=== PATIENT | male | born 1940 | race Caucasian/White ===

== ENCOUNTER 2018-08-10 12:11 | Observation (INO) ==
[2018-08-10] MEDS ORDERED: Sod Chloride 0.9% Inj 1,000 ML IV.CONT SCH (13:00)
--- NOTE | 2018-08-10 13:08 | ED ---
HPI General Chief Complaint: Syncope Stated Complaint: Poss syncope Time Seen by Provider: 08/10/18 12:14 Source: patient Mode of arrival: EMS Limitations: no limitations History of Present Illness HPI narrative: The patient is a 77-year-old male who presents to the emergency department via EMS after a syncopal episode. The patient is currently visiting from [place], has a condo in [place], [place]. The patient was at the [email or web address] [place] earlier today when he suddenly became lightheaded , dizzy, and diaphoretic. The patient felt like he was going to pass out, family member they placed the patient in a sitting position and stated he subsequently passed out. Family was able to catch the patient prior to him falling to the floor. The patient was noted to be significantly diaphoretic according to EMS. The patient denies any history of syncope. The patient denies any current chest pain, shortness of breath, but does note mild nausea. He also complains of lightheadedness and dizziness which is worse with standing upright, but still present while lying supine. 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 MD complaint: Reports loss of consciousness and collapsed Onset (ago): minute(s) -: second(s) Prodromal symptoms: Reports lightheaded, diaphoresis and nausea/vomiting Witnessed: yes - by other Context: Reports standing up Injuries sustained associated with event: Reports none Current symptoms: Reports lightheaded, nausea and weakness Treatments prior to arrival: Reports none Related Data Home Medications Medication Instructions Recorded Confirmed escitalopram oxalate [Lexapro] 5 mg PO DAILY 08/10/18 08/10/18 Allergies Allergy/AdvReac Type Severity Reaction Status Date / Time Penicillins Allergy Anxiety Verified 08/10/18 12:19 Sulfa (Sulfonamide Allergy Blister Verified 08/10/18 12:19 Antibiotics) tetracycline Allergy Confusion Verified 08/10/18 13:16 [From Achromycin] Review of Systems ROS: all other systems reviewed are negative [facility] Medical History Medical History Depression (Acute) Surgical History Surgical History History of back surgery (Acute) Social History Social History Substance History: No History of Abuse Second Hand Smoke Exposure: No Smoking Status: Never smoker How Often Do You Have a Drink Containing Alcohol: Monthly or less Recent Travel in [facility] within the Last 8 Weeks: No Recent Out of Country Travel within the Last 8 Weeks: No Immunization History Tetanus Immunization: <5 Years Exam Narrative Exam Narrative: GENERAL: Awake, alert, pleasant 77-year-old male who appears his stated age and is in no acute respiratory distress. SKIN: Focused skin assessment warm/dry. HEAD: Atraumatic. Normocephalic. EYES: Pupils equal and round. No scleral icterus. No injection or drainage. ENT: No nasal bleeding or discharge. Slightly dry mucous membranes. NECK: Trachea midline. No JVD. CARDIOVASCULAR: Regular rate and rhythm. No murmur appreciated. Heart rate in the 60s. RESPIRATORY: No accessory muscle use. Clear to auscultation. Breath sounds equal bilaterally. GASTROINTESTINAL: Abdomen soft, non-tender, nondistended. MUSCULOSKELETAL: No obvious deformities. No clubbing. No cyanosis. No edema. NEUROLOGICAL: Awake and alert. No obvious cranial nerve deficits. Motor grossly within normal limits. Normal speech. Nonfocal. Oriented x4. PSYCHIATRIC: Appropriate mood and affect; insight and judgment normal. Course Initial Documented Vital Signs Temperature 97.8 F 08/10/18 12:24 Pulse Rate 69 08/10/18 12:24 Respiratory Rate 14 08/10/18 12:24 Blood Pressure 146/64 H 08/10/18 12:24 Pulse Oximetry 98 08/10/18 12:24 Last Documented Vital Signs Temperature 97.8 F 08/10/18 12:24 Pulse Rate 63 08/10/18 15:08 Respiratory Rate 14 08/10/18 15:08 Blood Pressure 163/72 H 08/10/18 15:08 Pulse Oximetry 97 08/10/18 15:08 Medical Decision Making [facility] Narrative Medical decision making narrative: IV was established, labs are drawn and sent, and the patient was placed on cardiac telemetry monitoring and continuous pulse oximetry monitoring. EKG was ordered and interpreted. Orthostatic vital signs were obtained. CT the brain was obtained to rule out CVA/subdural hemorrhage. CT the brain is negative. Laboratory evaluation is unremarkable. The patient appeared to be in a sinus rhythm, there is no evidence of atrial or ventricular arrhythmias. However, the patient did feel like he was having palpitations at one time, there is no evidence of ectopy at that time on telemetry monitoring. The patient has no previous history of syncope, had a syncopal episode earlier today. Therefore, the patient will be 23-hour observation for echocardiogram and cardiac telemetry monitoring. The patient is comfortable with this plan of care and disposition. Medical Screen Exam Complete: Yes Emergency Medical Condition: Yes Differential Diagnosis Differential Diagnosis: Differential diagnosis includes orthostatic hypotension , vasovagal syncope, arrhythmia, neurogenic syncope, aortic stenosis, CVA, intracranial hemorrhage, symptomatic anemia, hyponatremia, dehydration, acute kidney injury. Lab Data Lab results reviewed: Yes I reviewed the patient's lab results. Result diagrams: 08/10/18 12:58 08/10/18 12:58 Lab Results 08/10/18 08/10/18 Range/Units 12:58 12:58 WBC 6.9 (4.0-11.0) th/mm3 RBC 4.69 (4.50-5.90) mil/mm3 Hgb 13.6 (13.0-17.0) gm/dL Hct 41.2 (39.0-51.0) % MCV 88.0 (80.0-100.0) fL MCH 28.9 (27.0-34.0) pg MCHC 32.9 (32.0-36.0) % RDW 14.6 (11.6-17.2) % Plt Count 189 (150-450) th/mm3 MPV 7.5 (7.0-11.0) fL Neut % (Auto) 76.4 H (16.0-70.0) % Lymph % (Auto) 10.9 (9.0-44.0) % [place] % (Auto) 8.8 H (0.0-8.0) % Eos % (Auto) 3.3 (0.0-4.0) % Baso % (Auto) 0.6 (0.0-2.0) % Neut # (Auto) 5.3 (1.8-7.7) th/mm3 Lymph # (Auto) 0.8 L (1.0-4.8) th/mm3 [place] # (Auto) 0.6 (0.0-0.9) th/mm3 Eos # (Auto) 0.2 (0.0-0.4) th/mm3 Baso # (Auto) 0.0 (0.0-0.2) th/mm3 WBC Differential . Differential Comment Auto diff final Sodium 144 (136-145) meq/L Potassium 4.1 (3.5-5.1) meq/L Chloride 107 (98-107) meq/L Carbon Dioxide 31.1 (21.0-32.0) meq/L Anion Gap 6 (5-15) meq/L BUN 18 (7-18) mg/dL Creatinine 1.43 H (0.60-1.30) mg/dL Estimated GFR 48 L (>89) mL/min Random Glucose 115 H (74-106) mg/dL Calcium 8.5 (8.5-10.1) mg/dL Magnesium 2.3 (1.5-2.5) mg/dL Total Bilirubin 0.6 (0.2-1.0) mg/dL AST 19 (15-37) U/L ALT 25 (12-78) U/L Alkaline Phosphatase 87 (45-117) U/L Troponin I Less than 0.02 L (0.02-0.05) ng/mL Total Protein 6.9 (6.4-8.2) g/dL Albumin 3.2 L (3.4-5.0) g/dL Imaging Data Radiologist's impression: Head CT 08/10/18 12:50 CONCLUSION: 1. Negative CT Head non contrast. 2. No evidence of acute infarct, hemorrhage, mass or edema. . ECG Data EKG Prior to Arrival: No Attestation: I personally reviewed and interpreted this ECG as follows: Interpretation: EKG reveals normal sinus rhythm with a rate of 68. No ischemic changes or ectopy noted. No evidence of WPW or Brugada syndrome. Discharge Plan Discharge Disposition Patient Disposition: 30 Still Patient Discharge Condition Condition: Stable Discharge Details Diagnosis: Syncope Physicians Team ED Provider: Parker Murray Primary Care Provider: UNKNOWN, Rxs /Orders / Referrals /Forms Prescriptions: No Action escitalopram oxalate [Lexapro] 5 mg Tablet 5 mg PO DAILY RF: 0 Discharge Interventions Interventions: Vital Signs Last Done: 08/10/18 15:08 Status ED Status: With Doctor
[2018-08-10 13:22] LABS: Baso % (Auto) 0.6 % (0.0-2.0); Eos # (Auto) 0.2 th/mm3 (0.0-0.4); Eos % (Auto) 3.3 % (0.0-4.0); Hematocrit 41.2 % (39.0-51.0); Hemoglobin 13.6 gm/dL (13.0-17.0); Lymph # (Auto) 0.8 th/mm3 (1.0-4.8); Lymph % (Auto) 10.9 % (9.0-44.0); Mean Corpuscular HGB Conc 32.9 % (32.0-36.0); Mean Corpuscular Hemoglobin 28.9 pg (27.0-34.0); Mean Platelet Volume 7.5 fL (7.0-11.0); Mono # (Auto) 0.6 th/mm3 (0.0-0.9); Mono % (Auto) 8.8 % (0.0-8.0); Neut # (Auto) 5.3 th/mm3 (1.8-7.7); Neut % (Auto) 76.4 % (16.0-70.0); Platelet Count 189 th/mm3 (150-450); Red Blood Count 4.69 mil/mm3 (4.50-5.90); Red Cell Distribution Width 14.6 % (11.6-17.2); White Blood Count 6.9 th/mm3 (4.0-11.0)
[2018-08-10 13:52] LABS: Alanine Aminotransferase 25 U/L (12-78); Albumin 3.2 g/dL (3.4-5.0); Anion Gap 6 meq/L (5-15); Aspartate Aminotransferase 19 U/L (15-37); Blood Urea Nitrogen 18 mg/dL (7-18); Calcium 8.5 mg/dL (8.5-10.1); Carbon Dioxide 31.1 meq/L (21.0-32.0); Chloride 107 meq/L (98-107); Glomerular Filtration Rate 48 mL/min (>89); Glucose,Random 115 mg/dL (74-106); Magnesium 2.3 mg/dL (1.5-2.5); Potassium 4.1 meq/L (3.5-5.1); Sodium 144 meq/L (136-145)
[2018-08-10 13:56] LABS: Alkaline Phosphatase 87 U/L (45-117); Total Protein 6.9 g/dL (6.4-8.2)
[2018-08-10] MEDS ORDERED: Acetaminophen 325 MG Tablet PO ONE (14:01)
--- NOTE | 2018-08-10 15:07 | CT ---
EXAM DATE: 08/10/2018 2:46 PM EST AGE/SEX: 77 years / Male INDICATIONS: Dizziness. CLINICAL DATA: This is the patient's initial encounter. Patient reports that signs and symptoms have been present for 1 day and indicates a pain score of 0/10. MEDICAL/SURGICAL HISTORY: None. . back surgery RADIATION DOSE: 41.05 CTDI (mGy) COMPARISON: No prior exams available for comparison. TECHNIQUE: CT of the head without contrast. Using automated exposure control and adjustment of the mA and/or kV according to patient size, radiation dose was kept as low as reasonably achievable to ob tain optimal diagnostic quality images. DICOM format image data is available electronically for revi ew and comparison. FINDINGS: Cerebrum: The ventricles are normal for age. No evidence of midline shift, mass lesion, hemorrhage or acute infarction. No extraaxial fluid collections are seen. Posterior Fossa: The cerebellum and brainstem are intact. The 4th ventricle is midline. The cerebe llopontine angle is unremarkable. Extracranial: The visualized portion of the orbits is intact. Skull: The calvaria is intact. No evidence of skull fracture. CONCLUSION: 1. Negative CT Head non contrast. 2. No evidence of acute infarct, hemorrhage, mass or edema. . Electronically signed by: Piter Celaya MD 08/10/2018 3:06 PM EST
[2018-08-10 15:41] LABS: Bilirubin,Urine Negative (Negative); Clarity,Urine Hazy (Clear); Color,Urine Yellow (Yellw/Straw); Glucose,Urine (UA) Negative (Negative); Leukocyte Esterase,Urine Negative (Negative); Mucus,Urine Few /lpf (Occasional); Nitrite,Urine Negative (Negative); Specific Gravity,Urine 1.014 (1.002-1.035); Squamous Epithelial Cell,Urine <1 /hpf (0-5)
[2018-08-10] MEDS ORDERED: Morphine Inj 4 MG/ML Vial IV.PUSH PRN ×3 (15:54)
[2018-08-10] MEDS ORDERED: Naloxone Inj 0.4 MG/ML Vial IV.PUSH PRN (15:54)
[2018-08-10] MEDS ORDERED: oxyCODONE/Acetaminophen 10/325 Tablet PO PRN (15:54)
[2018-08-10] MEDS ORDERED: Bisacodyl 10 MG Supp RECTAL PRN (15:54)
[2018-08-10] MEDS ORDERED: Morphine Sulfate Inj 2 MG/ML Vial IV.PUSH PRN (15:54)
[2018-08-10] MEDS ORDERED: Acetaminophen 325 MG Tablet PO PRN ×2 (15:54)
--- NOTE | 2018-08-10 16:17 | P.HP ---
History of Present Illness Primary Care Physician: UNKNOWN Chief Complaint: syncope History of Present Illness: 77-year-old male with history of depression presents after syncopal episode. Patient is visiting from [place] on vacation, travel via private vehicle yesterday. The patient states he woke up this morning, felt a little bit lightheaded when he got out of bed, but otherwise felt okay. He went to [employer], was not there very long, when he all of a sudden became very lightheaded with profuse diaphoresis. He states he was able to sit down with the assistance of his family, then suddenly syncopized. His son reports he lost consciousness for about 15-20 seconds. He did not fall or suffer any head injury. He was nauseous after the episode, but no vomiting. Son at bedside reports EVAC noted his systolic blood pressure to be in the 70s. He denies ever having any chest pain, palpitations, or shortness of breath. Patient states 2- 3 weeks ago he was getting up from bed when he all of a sudden felt lightheaded and fell. He has difficulty recalling if he passed out or not, but he did suffer abrasions to his bilateral upper extremities and was very diaphoretic at that time. He has also been having some left shoulder pain and left arm paresthesias since this fall. Currently the patient is seen in the ED, he reports overall feeling better, however still having some lightheadedness, worse upon standing. He has no other medical complaints at this time. He reports a family history of stroke. He has been on baby aspirin daily for years but stopped taking this about a month ago due to bleeding from superficial abrasions on extremities. 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 - Diagnosis (1) Syncope Review of Systems All other systems reviewed negative except as stated in HPI PMFSH - History History Provided By: Patient - Medical History Medical History: Medical History (Last Updated 08/10/18 @ 16:50 by Gladys Eugene) Depression Spinal stenosis - Surgical History Surgical History: Surgical History (Last Updated 08/10/18 @ 16:51 by Glayds Eugene) History of back surgery History of cataract surgery - Family History Family History: Family History (Last Updated 08/10/18 @ 16:51 by Gladys Eugene) Other Stroke - Social History I have reviewed the patient's Social History: Yes - Tobacco History Second Hand Smoke Exposure: No Smoking Status: Former smoker (quit 50-60 years ago) - Alcohol History How Often Do You Have a Drink Containing Alcohol: Monthly or less - Substance Use History Substance History: No History of Abuse - Travel History Recent Travel in the [place] Within the Last 8 Weeks: No Recent Travel Out of the Country Within the Last 8 Weeks: No - Immunization History Tetanus Immunization: <5 Years Medications and Allergies Active Medications: Active Medications Acetaminophen (Tylenol) 650 mg PO Q6HR PRN PRN Reason: PAIN SCALE 1 TO 2 Acetaminophen (Tylenol) 650 mg PO Q4H PRN PRN Reason: Temp > 100.4 Al Hydroxide/Mg Hydroxide (Milk Of Magnesia Liq) 30 ml PO Q12H PRN PRN Reason: Mild Constipation Bisacodyl (Dulcolax Supp) 10 mg RECTAL DAILY PRN PRN Reason: SEVERE CONSITIPATION Escitalopram Oxalate (Lexapro) 5 mg PO DAILY FATMATA Sodium Chloride (Ns Inj) 1,000 mls @ 125 mls/hr IV.CONT .Q8H FATMATA Stop: 08/10/18 20:59 Last Admin: 08/10/18 13:14 Dose: 125 mls/hr Sodium Chloride (Ns Inj) 1,000 mls @ 100 mls/hr IV.CONT .Q10H FATMATA Cefepime HCl 2,000 mg/ Sodium (Chloride) 100 mls @ 200 mls/hr IV.SIG ONCE ONE Stop: 08/10/18 16:28 Lactulose (Lactulose Liq) 30 ml PO DAILY PRN PRN Reason: SEVERE CONSITIPATION Morphine Sulfate (Morphine Inj) 2 mg IV.PUSH Q3H PRN PRN Reason: PAIN 3-5; IF UABLE TO TAKE PO Morphine Sulfate (Morphine Inj) 4 mg IV.PUSH Q3H PRN PRN Reason: PAIN 6-10;IF UNABLE TO TAKE PO Morphine Sulfate (Morphine Inj) 4 mg IV.PUSH Q3H PRN PRN Reason: BREAKTHROUGH PAIN Morphine Sulfate (Morphine Inj) 4 mg IV.PUSH Q1H PRN PRN Reason: Pain Scale 7-10 (Intractable) Naloxone HCl (Narcan Inj) 0.4 mg IV.PUSH UNSCH PRN PRN Reason: SEE LABEL COMMENTS Ondansetron HCl (Zofran Inj) 4 mg IV.PUSH Q6H PRN PRN Reason: NAUSEA OR VOMITING Oxycodone/Acetaminophen (Percocet 10/325 Mg) 1 tab PO Q6H PRN PRN Reason: PAIN SCALE 6 TO 10 Oxycodone/Acetaminophen (Percocet 5/325 Mg) 1 tab PO Q6H PRN PRN Reason: PAIN SCALE 3 TO 5 Senna/Docusate Sodium (Valerie-Colace) 1 tab PO BID FATMATA Sennosides (Senokot) 17.2 mg PO Q12H PRN PRN Reason: Moderate Constipation Allergies Allergy/AdvReac Type Severity Reaction Status Date / Time Penicillins Allergy Anxiety Verified 08/10/18 12:19 Sulfa (Sulfonamide Allergy Blister Verified 08/10/18 12:19 Antibiotics) tetracycline Allergy Confusion Verified 08/10/18 13:16 [From Achromycin] Home Medications Medication Instructions Recorded Confirmed Type escitalopram oxalate [Lexapro] 5 mg PO DAILY 08/10/18 08/10/18 History Exam Vital signs: Vital Signs 08/10/18 12:24 08/10/18 13:14 08/10/18 15:08 Temperature 97.8 F Pulse Rate 69 63 Respiratory Rate 14 14 Blood Pressure 146/64 H 163/72 H Pulse Oximetry 98 97 97 Intake & Output 08/09/18 08/10/18 08/10/18 19:59 06:59 18:59 Weight 98.43 kg Narrative: GENERAL: Well-nourished, well-developed elderly male patient in [facility]. SKIN: Warm and dry. No rash. HEENT: Normocephalic. Atraumatic. Pupils equal and round. Mucous membranes pink and moist. NECK: Supple. Trachea midline. CARDIOVASCULAR: Regular rate and rhythm. No murmur appreciated. RESPIRATORY: No accessory muscle use. Clear to auscultation. Breath sounds equal bilaterally. GASTROINTESTINAL: Abdomen soft, non-tender, nondistended. Normoactive bowel sounds x4. MUSCULOSKELETAL: No obvious deformities. Extremities without clubbing, cyanosis , or edema. NEUROLOGICAL: Awake and alert. No obvious cranial nerve deficits. Motor grossly within normal limits. 5/5 bilateral upper and lower extremity strength. Normal speech. No facial droop, lid lag, or tongue deviation. No pronator drift. Bilateral facial sensation equal and intact. PSYCHIATRIC: Appropriate mood and affect; insight and judgment normal. Results - Labs CBC & Chem 7: 08/10/18 12:58 08/10/18 12:58 Labs: Laboratory Results - last 24 hr 08/10/18 08/10/18 08/10/18 12:58 12:58 14:54 WBC 6.9 RBC 4.69 Hgb 13.6 Hct 41.2 MCV 88.0 MCH 28.9 MCHC 32.9 RDW 14.6 Plt Count 189 MPV 7.5 Neut % (Auto) 76.4 H Lymph % (Auto) 10.9 [place] % (Auto) 8.8 H Eos % (Auto) 3.3 Baso % (Auto) 0.6 Neut # (Auto) 5.3 Lymph # (Auto) 0.8 L [place] # (Auto) 0.6 Eos # (Auto) 0.2 Baso # (Auto) 0.0 WBC Differential . Differential Comment Auto diff final Sodium 144 Potassium 4.1 Chloride 107 Carbon Dioxide 31.1 Anion Gap 6 BUN 18 Creatinine 1.43 H Estimated GFR 48 L Random Glucose 115 H Calcium 8.5 Magnesium 2.3 Total Bilirubin 0.6 AST 19 ALT 25 Alkaline Phosphatase 87 Troponin I Less than 0.02 L Total Protein 6.9 Albumin 3.2 L Urine Color Yellow Urine Clarity Hazy H Urine pH 5.0 Ur Specific [place] 1.014 Urine Protein Negative Urine Glucose (UA) Negative Urine Ketones Negative Urine Occult Blood Negative Urine Nitrate Negative Urine Bilirubin Negative Urine Urobilinogen Less than 2 Ur Leukocyte Esterase Negative Urine WBC 2 Ur Squamous Epith Cells <1 Urine Mucus Few H Micro UA Comment Culture not ind Ur Microscopic Review Not Reportable Urine Culture Comments Culture not ind - Imaging Impressions Head CT 08/10/18 12:50 CONCLUSION: 1. Negative CT Head non contrast. 2. No evidence of acute infarct, hemorrhage, mass or edema. . Caprini VTE Risk Assessment Caprini VTE Risk Assessment: Moderate/High Risk (score >= 2) Caprini Risk Assessment Model: Point Value = 1 Point Value = 2 Point Value = 3 Point Value = 5 Age 41-60 Minor surgery BMI > 25 kg/m2 Swollen legs Varicose veins or History of unexplained or recurrent spontaneous Oral contraceptives or hormone replacement Sepsis (< 1 month) Serious lung disease, including pneumonia (< 1 month) Abnormal pulmonary function Acute myocardial infarction Congestive heart failure (< 1 month) History of inflammatory bowel disease Medical patient at bed rest Age 61-74 Arthroscopic surgery Major open surgery (> 45 min) Laparoscopic surgery (> 45 min) Malignancy Confined to bed (> 72 hours) Immobilizing plaster cast Central venous access Age >= 75 History of VTE Family history of VTE Factor V Leiden Prothrombin [id number] Lupus anticoagulant Anticardiolipin antibodies Elevated serum homocysteine Heparin-induced thrombocytopenia Other congenital or acquired thrombophilia Stroke (< 1 month) Elective arthroplasty Hip, pelvis, or leg fracture Acute spinal cord injury (< 1 month) Prophylaxis Regimen: Total Risk Factor Score Risk Level Prophylaxis Regimen 0-1 Low Early ambulation 2 Moderate Order ONE of the following: *Sequential Compression Device (SCD) *Heparin 5000 units SQ BID 3-4 Higher Order ONE of the following medications: *Heparin 5000 units SQ TID *Enoxaparin/Lovenox 40 mg SQ daily (WT < 150 kg, CrCl > 30 mL/min) *Enoxaparin/Lovenox 30 mg SQ daily (WT < 150 kg, CrCl > 10-29 mL/min) *Enoxaparin/Lovenox 30 mg SQ BID (WT < 150 kg, CrCl > 30 mL/min) AND/OR *Sequential Compression Device (SCD) 5 or more Highest Order ONE of the following medications: *Heparin 5000 units SQ TID (Preferred with Epidurals) *Enoxaparin/Lovenox 40 mg SQ daily (WT < 150 kg, CrCl > 30 mL/min) *Enoxaparin/Lovenox 30 mg SQ daily (WT < 150 kg, CrCl > 10-29 mL/min) *Enoxaparin/Lovenox 30 mg SQ BID (WT < 150 kg, CrCl > 30 mL/min) AND *Sequential Compression Device (SCD) Assessment and Plan - Assessment (1) Syncope Code(s): R55 - Syncope and collapse Status: Acute - Plan 77-year-old male with history of depression presents after syncopal episode while at the [employer]. Patient is visiting from [place] on vacation, travel via private vehicle yesterday. Syncope: suspect secondary to dehydration, rule out TIA/CVA, arrhythmia, cardiomyopathy, etc. 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 Denies any hx of CKD. -give IVF hydration -avoid nephrotoxins -repeat BMP in am Depression: chronic -continue patient's home med DVT Prophylaxis: teds/SCDs (1) Syncope Qualifiers: Syncope type: unspecified Qualified Code(s): R55 - Syncope and collapse
[2018-08-10] MEDS: Sod Chloride 0.9% Inj 1,000 ML IV.CONT SCH (17:51)
--- NOTE | 2018-08-10 18:38 | US ---
EXAM DATE: 08/10/2018 6:33 PM EST AGE/SEX: 77 years / Male INDICATIONS: Syncope. CLINICAL DATA: This is the patient's initial encounter. Patient reports that signs and symptoms have been present for 1 day and indicates a pain score of 0/10. MEDICAL/SURGICAL HISTORY: . Spinal stenosis. . Back surgery. COMPARISON: No prior exams available for comparison. VELOCITY PARAMETERS: ICA/CCA Ratio: Right 0.8 , Left 0.8 ICA: Right 95 cm/sec, Left 72 cm/sec CCA: Right 115 cm/sec, Left 85 cm/sec ECA: Right 63 cm/sec, Left 71 cm/sec Vertebral: Right 40 cm/sec antegrade, Left 53 cm/sec antegrade FINDINGS: Right Carotid: No significant plaque is visualized.The waveforms are within normal limits. Left Carotid: No significant plaque is visualized. The waveforms are within normal limits. Other: None. CONCLUSION: 1. Right Internal Carotid Artery: No significant plaque or narrowing. 2. Left Internal Carotid Artery: No significant plaque or narrowing. Electronically signed by: Deepak Currie MD 08/10/2018 6:37 PM EST
[2018-08-10] MEDS: Senna/Docusate Sodium 8.6/50 MG Tablet PO SCH (20:25)
[2018-08-10 22:02] LABS: Creatine Kinase 128 U/L (39-308)
[2018-08-11 01:20] LABS: Creatine Kinase 80 U/L (39-308)
[2018-08-11] MEDS: Sod Chloride 0.9% Inj 1,000 ML IV.CONT SCH (02:07)
--- NOTE | 2018-08-11 02:27 | P.PNADD ---
Addendum to Inpatient Note Reason for Addendum: Additional Documentation Additional information: Mr. Garcia spoke with his bedside RN and requested a DNR CODE STATUS. I came to the patient's bedside and discussed this with him. He is awake alert and oriented and situationally aware. He states that he saw his father, who had a documented DNR status, subjected to a resuscitation despite his wishes. He says he saw him suffer from multiple rib fractures following prolonged resuscitation efforts. He indicates that he has long-standing chronic pain from spinal stenosis along with "bad lungs". He indicates that he has lived "a very good life" and wishes no resuscitative efforts be attempted in the event that his heart stops or if he stops breathing. He is aware this will result in his . He tells me that his is aware of his desire for DNR status, but does not agree with his decision. He requests a [place] DNR form. I have placed a consult to palliative care to assist with this. In my opinion, a formal consultation is not necessarily needed in this case. The palliative care team and the daytime attending can determine how best to proceed during normal daytime hours. In the interim, I have honored his request and placed a DO NOT RESUSCITATE order in the electronic medical record. .
[2018-08-11 05:42] LABS: INR 1.1 Ratio
[2018-08-11 05:43] LABS: Baso % (Auto) 0.7 % (0.0-2.0); Eos # (Auto) 0.2 th/mm3 (0.0-0.4); Eos % (Auto) 3.4 % (0.0-4.0); Hematocrit 41.6 % (39.0-51.0); Lymph # (Auto) 0.6 th/mm3 (1.0-4.8); Lymph % (Auto) 10.3 % (9.0-44.0); Mean Corpuscular HGB Conc 33.6 % (32.0-36.0); Mean Corpuscular Volume 86.1 fL (80.0-100.0); Mean Platelet Volume 7.4 fL (7.0-11.0); Mono # (Auto) 0.6 th/mm3 (0.0-0.9); Mono % (Auto) 9.2 % (0.0-8.0); Neut # (Auto) 4.8 th/mm3 (1.8-7.7); Neut % (Auto) 76.4 % (16.0-70.0); Platelet Count 173 th/mm3 (150-450); Red Blood Count 4.83 mil/mm3 (4.50-5.90); Red Cell Distribution Width 14.2 % (11.6-17.2); White Blood Count 6.3 th/mm3 (4.0-11.0)
[2018-08-11 06:03] LABS: Albumin 3.1 g/dL (3.4-5.0); Anion Gap 6 meq/L (5-15); Aspartate Aminotransferase 19 U/L (15-37); Blood Urea Nitrogen 14 mg/dL (7-18); Calcium 8.4 mg/dL (8.5-10.1); Carbon Dioxide 29.6 meq/L (21.0-32.0); Chloride 108 meq/L (98-107); Cholesterol 165 mg/dL (120-200); Glomerular Filtration Rate 62 mL/min (>89); Glucose,Random 91 mg/dL (74-106); Potassium 4.1 meq/L (3.5-5.1); Sodium 144 meq/L (136-145)
[2018-08-11 06:08] LABS: Alanine Aminotransferase 27 U/L (12-78); Alkaline Phosphatase 87 U/L (45-117); Chol/HDL Ratio 4.55 Ratio; HDL Cholesterol 36.2 mg/dL (40.0-60.0); LDL Cholesterol,Calculated 100 mg/dL (0-99); Total Protein 6.8 g/dL (6.4-8.2); Triglycerides 144 mg/dL (42-150)
[2018-08-11] MEDS: Senna/Docusate Sodium 8.6/50 MG Tablet PO SCH (08:33)
[2018-08-11] MEDS ORDERED: Escitalopram 10 MG Tablet PO SCH (09:00)
[2018-08-11 09:41] VITALS: BP 129/62; RESP 20; TEMP 97.8; O2SAT 97
--- NOTE | 2018-08-11 09:56 | MR ---
EXAM DATE: 08/11/2018 9:49 AM EST AGE/SEX: 77 years / Male INDICATIONS: CVA. CLINICAL DATA: This is the patient's initial encounter. Patient reports that signs and symptoms have been present for 2 days and indicates a pain score of 0/10. MEDICAL/SURGICAL HISTORY: None. Fusion, lumbar. COMPARISON: [facility] [place], CT HEAD W/O CONTRAST, 08/10/2018. . TECHNIQUE: Multiplanar, multisequence examination of the brain was performed without contrast. FINDINGS: Cerebrum: The ventricles are normal for age. No evidence of midline shift, mass lesion, hemorrhage or acute infarction. No extraaxial fluid collections are seen. The pituitary gland and suprasellar cistern are normal in configuration. White Matter: Scattered foci of bright T2 signal abnormalities are seen in the white matter. Posterior Fossa: The cerebellum and brainstem are intact. The 4th ventricle is midline. The cerebel lopontine angle is unremarkable. The cerebellar tonsils are normal in position. Diffusion Imaging: No focal areas of restricted diffusion are seen. No evidence of acute infarction . Extracranial: The visualized portions of the orbits and paranasal sinuses are unremarkable. CONCLUSION: 1. Chronic ischemic small vessel vasculopathy. 2. No acute infarction. Electronically signed by: Siva De La Rosa MD 08/11/2018 9:55 AM EST
[2018-08-11 11:05] VITALS: PULSE 92
--- NOTE | 2018-08-11 12:09 | P.PNPAL ---
Palliative care consulted to assist with facilitation of [facility] Community DNR Order as patient indicate last night with [employer] he wished to be a DNR and wanted to form completed to discharge with him. Spoke with CM to assist with facilitate of medical attending signing Community DNR. Community DNR completed with case management assistance. Copy in chart and copy faxed to HIM to be scanned into EMR. Palliative care remains available if needed for full consultation.
[2018-08-11] MEDS ORDERED: Lactobacillus Acidophilus/L. Spores Tablet PO SCH (13:00)
--- NOTE | 2018-08-11 14:28 | ECHRPT ---
Indication: syncope CONCLUSIONS The left ventricular systolic function is low normal with an estimated ejection fraction in the rang e of 50- 55%. Normal left ventricular size. Wall thickness is normal. No regional wall motion abnormalities are present. Aortic valve sclerosis is present. There is trace tricuspid valve regurgitation. The estimated pulmonary arterial pressure is 40.7 mmHg. BP: / HR: Rhythm: Sinus MEASUREMENTS (Male / Female) Normal Values Technical Quality:Fair 2D ECHO LV Diastolic Diameter PLAX 4.8 cm 4.2 - 5.9 / 3.9 - 5.3 cm LV Systolic Diameter PLAX 3.7 cm IVS Diastolic Thickness 1.1 cm 0.6 - 1.0 / 0.6 - 0.9 cm LVPW Diastolic Thickness 1.1 cm 0.6 - 1.0 / 0.6 - 0.9 cm LV Relative Wall Thickness 0.4 LVOT Diameter 2.1 cm LA Systolic Diameter LX 3.3 cm 3.0 - 4.0 / 2.7 - 3.8 cm LV Ejection Fraction MOD 4C 56.2 % LV Ejection Fraction 4C AL 57.8 % M-MODE Aortic Root Diameter MM 2.5 cm LA Systolic Diameter MM 3.2 cm LA Ao Ratio MM 1.3 AV Cusp Separation MM 1.9 cm DOPPLER AV Peak Velocity 133.0 cm/s AV Peak Gradient 7.1 mmHg LVOT Peak Velocity 94.8 cm/s LVOT Peak Gradient 3.6 mmHg AV Area Cont Eq pk 2.5 cm MV Area PHT 4.2 cm Mitral E Point Velocity 72.6 cm/s Mitral A Point Velocity 94.3 cm/s Mitral E to A Ratio 0.8 LV E' Lateral Velocity 9.1 cm/s Mitral E to LV E' Lateral Ratio 8.0 LV E' Septal Velocity 5.6 cm/s Mitral E to LV E' Septal Ratio 13.1 TR Peak Velocity 277.0 cm/s TR Peak Gradient 30.7 mmHg Right Atrial Pressure 10.0 mmHg Pulmonary Artery Systolic Pressu 40.7 mmHg Right Ventricular Systolic Press 40.7 mmHg PV Peak Velocity 70.6 cm/s PV Peak Gradient 2.0 mmHg FINDINGS LEFT VENTRICLE The left ventricular systolic function is low normal with an estimated ejection fraction in the rang e of 50- 55%. Normal left ventricular size. Wall thickness is normal. No regional wall motion abnormalities are present. RIGHT VENTRICLE Normal right ventricular size and systolic function. LEFT ATRIUM The left atrial size is normal. RIGHT ATRIUM The right atrial size is normal. ATRIAL SEPTUM Normal atrial septal thickness without atrial level shunting by limited color doppler interrogation. AORTA The aortic root and proximal ascending aorta are normal in size on limited imaging. MITRAL VALVE Structurally normal mitral valve. No mitral valve stenosis or regurgitation. AORTIC VALVE Trileaflet aortic valve. Aortic valve sclerosis is present. TRICUSPID VALVE Structurally normal tricuspid valve. There is trace tricuspid valve regurgitation. The estimated pulmonary arterial pressure is 40.7 mmHg. PULMONARY VALVE No pulmonary valve regurgitation or stenosis. VESSELS The inferior vena cava is normal in size. PERICARDIUM No pericardial effusion. Km Capellan MD, FACC, FSCAI (Electronically Signed) Final Date:11 August 2018 14:27
--- NOTE | 2018-08-11 15:15 | P.DS ---
Date of admission: 08/10/18 15:56 Primary care physician: UNKNOWN Brief History from admission: 77-year-old male with history of depression presents after syncopal episode. Patient is visiting from [place] on vacation, travel via private vehicle yesterday. The patient states he woke up this morning, felt a little bit lightheaded when he got out of bed, but otherwise felt okay. He went to [employer], was not there very long, when he all of a sudden became very lightheaded with profuse diaphoresis. He states he was able to sit down with the assistance of his family, then suddenly syncopized. His son reports he lost consciousness for about 15-20 seconds. He did not fall or suffer any head injury. He was nauseous after the episode, but no vomiting. Son at bedside reports EVAC noted his systolic blood pressure to be in the 70s. He denies ever having any chest pain, palpitations, or shortness of breath. Patient states 2- 3 weeks ago he was getting up from bed when he all of a sudden felt lightheaded and fell. He has difficulty recalling if he passed out or not, but he did suffer abrasions to his bilateral upper extremities and was very diaphoretic at that time. He has also been having some left shoulder pain and left arm paresthesias since this fall. Currently the patient is seen in the ED, he reports overall feeling better, however still having some lightheadedness, worse upon standing. He has no other medical complaints at this time. He reports a family history of stroke. He has been on baby aspirin daily for years but stopped taking this about a month ago due to bleeding from superficial abrasions on extremities. 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 DS: Medications - Discharge Medications Prescriptions: acidophilus-sporogenes [Acidophilus Ex Str (L. sporog)] 1 tab PO TID #60 tab cefuroxime axetil 500 mg PO Q12H #28 tab DS: Summary Hospital Course: Mr. Garcia is a 77-year-old male. He has a past history of recurrent profuse sweating episodes 2-3 times per 24-hour period. The patient came in secondary to a syncopal episode. This appears to be related to dehydration, orthostatic hypotension was present but is likely volume related. 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 He also reports numerous episodes of finding ticks on his body in the past. He is from [facility] which places him at risk for ehrlichiosis or Lyme's. Tetracyclines are an allergy in this patient so we discussed treatment with a cephalosporin. Syncopal workup was otherwise negative including echocardiogram, MRI, carotid ultrasound, and telemetry monitoring. Medically stable and cleared for discharge home today, he tolerated Rocephin as an inpatient, he will continue for 2 weeks on cefuroxime with a probiotic. - Time Spent with Patient Total time spent providing and/or coordinating discharge services: Less than 30 minutes - Quality: VTE Deep Vein Thrombosis/Pulmonary Embolism Present on Admission: No Exam Vital signs: Vital Signs 08/10/18 18:59 08/10/18 21:00 08/10/18 21:15 Temperature 97.4 F L Pulse Rate 68 64 69 Respiratory Rate 22 16 Blood Pressure 136/70 166/77 H Pulse Oximetry 97 96 08/10/18 23:55 08/11/18 00:00 08/11/18 03:58 Temperature 98.4 F 98.3 F Pulse Rate 52 L 77 76 Respiratory Rate 16 18 Blood Pressure 127/67 152/77 H Pulse Oximetry 96 96 08/11/18 04:00 08/11/18 08:00 08/11/18 09:00 Temperature 97.8 F Pulse Rate 74 66 92 H Respiratory Rate 20 Blood Pressure 129/62 Pulse Oximetry 97 Intake & Output 08/10/18 08/11/18 08/11/18 18:59 06:59 18:59 Intake Total 1000 / 1000 1300 / 1300 200 / 200 Balance 1000 / 1000 1300 / 1300 200 / 200 Weight 98.43 kg 98.43 kg Intake: IV 1000 / 1000 1000 / 1000 200 / 200 NS Inj 1,000 ML @ 100 mls/hr IV 1000 / 1000 1000 / 1000 200 / 200 .CONT .Q10H FATMATA Rx#:[id number] Oral 300 / 300 Other: # Voids 5 Weight On Admission 98.43 kg Results Procedures completed during hospitalization: None Labs on day of discharge: Labs from last 24 hours 08/11/18 08/11/18 08/11/18 05:05 05:05 05:05 WBC 6.3 RBC 4.83 Hgb 14.0 Hct 41.6 MCV 86.1 MCH 29.0 MCHC 33.6 RDW 14.2 Plt Count 173 MPV 7.4 Neut % (Auto) 76.4 H Lymph % (Auto) 10.3 [place] % (Auto) 9.2 H Eos % (Auto) 3.4 Baso % (Auto) 0.7 Neut # (Auto) 4.8 Lymph # (Auto) 0.6 L [place] # (Auto) 0.6 Eos # (Auto) 0.2 Baso # (Auto) 0.0 WBC Differential . Differential Comment Auto diff final PT 11.0 INR 1.1 Sodium 144 Potassium 4.1 Chloride 108 H Carbon Dioxide 29.6 Anion Gap 6 BUN 14 Creatinine 1.14 Estimated GFR 62 L Random Glucose 91 Hemoglobin A1c Calcium 8.4 L Total Bilirubin 0.6 AST 19 ALT 27 Alkaline Phosphatase 87 Total Creatine Kinase Troponin I Total Protein 6.8 Albumin 3.1 L Triglycerides 144 Cholesterol 165 LDL Cholesterol, Calc 100 H HDL Cholesterol 36.2 L Cholesterol/HDL Ratio 4.55 Urine Color Urine Clarity Urine pH Ur Specific [place] Urine Protein Urine Glucose (UA) Urine Ketones Urine Occult Blood Urine Nitrate Urine Bilirubin Urine Urobilinogen Ur Leukocyte Esterase Urine WBC Ur Squamous Epith Cells Urine Mucus Micro UA Comment Ur Microscopic Review Urine Culture Comments Serum Alcohol 08/11/18 08/10/18 08/10/18 00:41 20:52 16:16 WBC RBC Hgb Hct MCV MCH MCHC RDW Plt Count MPV Neut % (Auto) Lymph % (Auto) [place] % (Auto) Eos % (Auto) Baso % (Auto) Neut # (Auto) Lymph # (Auto) [place] # (Auto) Eos # (Auto) Baso # (Auto) WBC Differential Differential Comment PT INR Sodium Potassium Chloride Carbon Dioxide Anion Gap BUN Creatinine Estimated GFR Random Glucose Hemoglobin A1c Calcium Total Bilirubin AST ALT Alkaline Phosphatase Total Creatine Kinase 80 128 Troponin I Less than 0.02 L Less than 0.02 L Total Protein Albumin Triglycerides Cholesterol LDL Cholesterol, Calc HDL Cholesterol Cholesterol/HDL Ratio Urine Color Urine Clarity Urine pH Ur Specific [place] Urine Protein Urine Glucose (UA) Urine Ketones Urine Occult Blood Urine Nitrate Urine Bilirubin Urine Urobilinogen Ur Leukocyte Esterase Urine WBC Ur Squamous Epith Cells Urine Mucus Micro UA Comment Ur Microscopic Review Urine Culture Comments Serum Alcohol Less than 3 08/10/18 08/10/18 14:54 12:58 WBC RBC Hgb Hct MCV MCH MCHC RDW Plt Count MPV Neut % (Auto) Lymph % (Auto) [place] % (Auto) Eos % (Auto) Baso % (Auto) Neut # (Auto) Lymph # (Auto) [place] # (Auto) Eos # (Auto) Baso # (Auto) WBC Differential Differential Comment PT INR Sodium Potassium Chloride Carbon Dioxide Anion Gap BUN Creatinine Estimated GFR Random Glucose Hemoglobin A1c Pending Calcium Total Bilirubin AST ALT Alkaline Phosphatase Total Creatine Kinase Troponin I Total Protein Albumin Triglycerides Cholesterol LDL Cholesterol, Calc HDL Cholesterol Cholesterol/HDL Ratio Urine Color Yellow Urine Clarity Hazy H Urine pH 5.0 Ur Specific [place] 1.014 Urine Protein Negative Urine Glucose (UA) Negative Urine Ketones Negative Urine Occult Blood Negative Urine Nitrate Negative Urine Bilirubin Negative Urine Urobilinogen Less than 2 Ur Leukocyte Esterase Negative Urine WBC 2 Ur Squamous Epith Cells <1 Urine Mucus Few H Micro UA Comment Culture not ind Ur Microscopic Review Not Reportable Urine Culture Comments Culture not ind Serum Alcohol - Impressions ITS Impressions Carotid Doppler Study 08/10/18 00:00 CONCLUSION: 1. Right Internal Carotid Artery: No significant plaque or narrowing. 2. Left Internal Carotid Artery: No significant plaque or narrowing. Head CT 08/10/18 12:50 CONCLUSION: 1. Negative CT Head non contrast. 2. No evidence of acute infarct, hemorrhage, mass or edema. . Head MRI 08/11/18 07:04 CONCLUSION: 1. Chronic ischemic small vessel vasculopathy. 2. No acute infarction. Discharge Plan - Discharge Disposition Patient Disposition: 01 Discharge Home - Discharge Condition Condition: Stable - Discharge Order Discharge Orders: Discharge Order (Routine); Ordered 08/11/18 Ordered By: Lamin Russo - Discharge Details Anticipated Discharge Date: 08/11/18 - Physicians Team Primary Care Provider: UNKNOWN, Attending Provider: Lamin Russo Other Providers: ; Eliud Quintana MD
[2018-08-11 17:36] LABS: Hemoglobin A1c 6.1 % (4.3-6.0)
--- NOTE | 2018-08-11 21:11 | ECG ---
Date Performed: 08/10/2018 Time Performed: 22:37:42 PTAGE: 77 years EKG: Sinus rhythm with frequent PVCs Leftward axis Abnormal ECG PREVIOUS TRACING : 08/10/2018 16.37 Since the previous tracing, no significant change noted DOCTOR: Darien Prieto Interpretating Date/Time 08/11/2018 21:10:37
--- NOTE | 2018-08-11 21:28 | ECG ---
Date Performed: 08/10/2018 Time Performed: 16:37:21 PTAGE: 77 years EKG: Sinus rhythm BORDERLINE LEFT AXIS DEVIATION MODERATE VOLTAGE CRITERIA FOR LVH, CONSIDER NORMAL VARIANT BORDERLINE ECG PREVIOUS TRACING : 08/10/2018 14.07 Since the previous tracing, no significant change noted DOCTOR: Darien Prieto Interpretating Date/Time 08/11/2018 21:26:31
--- NOTE | 2018-08-11 21:36 | ECG ---
Date Performed: 08/10/2018 Time Performed: 14:07:18 PTAGE: 77 years EKG: Sinus rhythm BORDERLINE LEFT AXIS DEVIATION MODERATE VOLTAGE CRITERIA FOR LVH, CONSIDER NORMAL VARIANT BORDERLINE ECG PREVIOUS TRACING : 08/10/2018 12.19 Since the previous tracing, no significant change noted DOCTOR: Darien Prieto Interpretating Date/Time 08/11/2018 21:35:56
--- NOTE | 2018-08-11 21:42 | ECG ---
Date Performed: 08/10/2018 Time Performed: 12:19:22 PTAGE: 77 years EKG: Sinus rhythm BORDERLINE LEFT AXIS DEVIATION BORDERLINE ECG NO PREVIOUS TRACING DOCTOR: Darien Prieto Interpretating Date/Time 08/11/2018 21:40:04
[2018-08-15 03:49] LABS: Lyme Ab 18KD IgG WB NON-REACTIVE; Lyme Ab 23KD IgG WB NON-REACTIVE; Lyme Ab 23KD IgM WB NON-REACTIVE; Lyme Ab 28KD IgG WB REACTIVE; Lyme Ab 30KD IgG WB NON-REACTIVE; Lyme Ab 39KD IgG WB NON-REACTIVE; Lyme Ab 39KD IgM WB NON-REACTIVE; Lyme Ab 41KD IgG WB NON-REACTIVE; Lyme Ab 41KD IgM WB REACTIVE; Lyme Ab 45KD IgG WB NON-REACTIVE; Lyme Ab 58KD IgG WB NON-REACTIVE; Lyme Ab 66KD IgG WB NON-REACTIVE; Lyme Ab 93KD IgG WB NON-REACTIVE
== END 2018-08-11 16:52 | disposition home or self-care (01) ==
LOC: NEPE 12:11 → NEDA 12:11 → N05 20:15
PROVIDERS: ADMIT Hospitalist; ATTEND Hospitalist